=== PATIENT | female | born 1995 | race African-American/Black ===

== ENCOUNTER 2016-02-17 07:54 | Emergency (ER) | payer OTHER ==
[2016-02-17 08:13] VITALS: BP 139/88; PULSE 68; RESP 18; TEMP 98.9
--- NOTE | 2016-02-17 08:35 | ED ---
ENT HPI - General Chief complaint: ENT Stated complaint: ear pain Time Seen by Provider: 02/17/16 08:28 Source: patient, RN notes reviewed Mode of arrival: ambulatory Limitations: no limitations - History of Present Illness Initial comments: 20-year-old female presents emergency Department chief complaint of bilateral ear pain. Patient states she's been sequestered 4 days. Patient states she developed ear pain. States it is severe she's taken DayQuil NyQuil and ibuprofen. Patient states she's had minimal relief. Patient states she still feels like she has a cold. Patient has fever, chills. She states that she does get migraines from her ear pain. Patient states she has no pain behind her ear. Patient denies any sore throat or difficulty swelling. - Related Data Previous Rx's Medication Instructions Recorded Amoxicillin/Potassium Clav 1 tab PO Q12HR #20 tab 02/17/16 [Augmentin 875-125 Tablet] Allergies Allergy/AdvReac Type Severity Reaction Status Date / Time No Known Allergies Allergy Verified 02/17/16 08:39 Review of Systems ROS Statement: Those systems with pertinent positive or pertinent negative responses have been documented in the HPI. ROS Other: All systems not noted in ROS Statement are negative. Past Medical History Past Medical History: No Reported History History of Any Multi-Drug Resistant Organisms: None Reported Past Surgical History: Orthopedic Surgery, Tonsillectomy Additional Past Surgical History / Comment(s): right knee Past Psychological History: No Psychological Hx Reported Smoking Status: Never smoker Past Alcohol Use History: None Reported Past Drug Use History: None Reported General Exam Limitations: no limitations General appearance: alert, in no apparent distress Head exam: Present: atraumatic, normocephalic, normal inspection Eye exam: Present: normal appearance, PERRL, EOMI. Absent: scleral icterus, conjunctival injection, periorbital swelling ENT exam: Present: normal oropharynx, mucous membranes moist, normal external ear exam, other (No mastoid tenderness). Absent: TM's normal bilaterally (Left TM erythematous, bulging, mild fluid noted the right TM) Neck exam: Present: normal inspection, full ROM. Absent: tenderness, meningismus, lymphadenopathy Respiratory exam: Present: normal lung sounds bilaterally. Absent: respiratory distress, wheezes, rales, rhonchi, stridor Cardiovascular Exam: Present: regular rate, normal rhythm, normal heart sounds. Absent: systolic murmur, diastolic murmur, rubs, gallop, clicks Neurological exam: Present: alert, oriented X3, CN II-XII intact Course Vital Signs 02/17/16 08:11 Temperature 98.9 F Pulse Rate 68 Respiratory 18 Rate Blood Pressure 139/88 O2 Sat by Pulse 97 Oximetry Medical Decision Making - Medical Decision Making 20-year-old female presented for upper respiratory symptoms. Patient does have an otitis media. Patient we prescribed antibiotics. Discussed over-the- counter analgesics. Return parameters were discussed. Disposition Clinical Impression: Otitis media Disposition: HOME SELF-CARE Condition: Stable Instructions: Earache (ED) Additional Instructions: Please return to the Emergency Department if symptoms worsen or any other concerns. Prescriptions: Amoxicillin/Potassium Clav [Augmentin 875-125 Tablet] 1 tab PO Q12HR #20 tab Referrals: Nonstaff,Physician [Primary Care Provider] - 1-2 days Time of Disposition: 08:35
== END 2016-02-17 08:45 | disposition home or self-care (01) ==
LOC: EC 07:54
DX: H66.93 Otitis media, unspecified, bilateral (principal)
CPT/HCPCS: 99282

== ENCOUNTER 2016-02-28 13:42 | Emergency (ER) | payer OTHER ==
[2016-02-28 14:17] VITALS: RESP 16
--- NOTE | 2016-02-28 14:25 | ED ---
Female Urogenital HPI - General Chief complaint: Urogenital Stated complaint: Med Reaction Time Seen by Provider: 02/28/16 14:17 Source: patient, RN notes reviewed Mode of arrival: ambulatory Limitations: no limitations - History of Present Illness Initial comments: Patient is a 20-year-old female presents to the emergency room for evaluation of vaginal irritation. Patient states she was diagnosed with ear infection about a week and a half ago and was placed on Augmentin. Patient states she thinks she got a yeast infection from the antibiotics she was placed on. Patient states the area is really irritated and itchy. Patient states it mcclain when she urinates. Patient states she wants to get checked out to make sure she doesn't have any other type of infection going on in her vaginal area. Patient does state she is sexually active. Patient denies any history of STDs. Patient denies any flank pain. Patient denies blood in the urine. Patient denies any fevers or chills. Patient denies nausea or vomiting. Last Menstrual Period: 02/18/16 - Related Data Previous Rx's Medication Instructions Recorded Amoxicillin/Potassium Clav 1 tab PO Q12HR #20 tab 02/17/16 [Augmentin 875-125 Tablet] Acyclovir [Zovirax] 200 mg PO 5XD 10 Days 02/28/16 Fluconazole [Diflucan] 150 mg PO ONCE #1 tab 02/28/16 Allergies Allergy/AdvReac Type Severity Reaction Status Date / Time No Known Allergies Allergy Verified 02/28/16 14:23 Review of Systems ROS Statement: Those systems with pertinent positive or pertinent negative responses have been documented in the HPI. ROS Other: All systems not noted in ROS Statement are negative. Past Medical History Past Medical History: No Reported History History of Any Multi-Drug Resistant Organisms: None Reported Past Surgical History: Orthopedic Surgery, Tonsillectomy Additional Past Surgical History / Comment(s): right knee Past Psychological History: No Psychological Hx Reported Smoking Status: Never smoker Past Alcohol Use History: None Reported Past Drug Use History: None Reported General Exam - General Exam Comments Initial Comments: Sitting in exam room in no acute distress. Limitations: no limitations General appearance: alert, in no apparent distress Head exam: Present: atraumatic, normocephalic, normal inspection Eye exam: Present: normal appearance ENT exam: Present: normal exam Neck exam: Present: normal inspection Respiratory exam: Absent: respiratory distress External exam: Present: erythema, swelling, lesions (Ulcerating lesions over her labia majora and in the vaginal opening) Speculum exam: Present: vaginal discharge Extremities exam: Present: normal inspection Back exam: Present: normal inspection Neurological exam: Present: alert, oriented X3, CN II-XII intact, normal gait Psychiatric exam: Present: normal affect, normal mood Skin exam: Present: warm, dry, intact, normal color. Absent: rash Course Vital Signs 02/28/16 02/28/16 14:14 15:09 Temperature 98.4 F 98.7 F Pulse Rate 73 72 Respiratory 16 16 Rate Blood Pressure 115/77 112/7 O2 Sat by Pulse 99 Oximetry Medical Decision Making - Medical Decision Making Patient is a 20-year-old female presents emergency room for evaluation of vaginal irritation. On pelvic exam patient appears to have genital herpes along with yeast infection. Will place patient on acyclovir and Diflucan. Urine was slightly contaminated. Will culture her urine and have patient follow -up. Patient states that she will follow-up with her BLOCK CLEANER in [place] in 1-2 days. Advised patient to refrain from sexual activity until lesions clear. Patient states she understands everything that was discussed with her. Return parameters discussed. Case discussed with Dr. Carbajal. - Lab Data Lab Results 02/28/16 02/28/16 02/28/16 Range/Units 14:35 14:35 14:40 Urine Color Yellow Urine Appearance Clear (Clear) Urine pH 6.0 (5.0-8.0) Ur Specific [place] 1.017 (1.001-1.035) Urine Protein Trace H (Negative) Urine Glucose (UA) Negative (Negative) Urine Ketones Negative (Negative) Urine Blood Negative (Negative) Urine Nitrate Negative (Negative) Urine Bilirubin Negative (Negative) Urine Urobilinogen 4.0 (<2.0) mg/dL Ur Leukocyte Esterase Moderate H (Negative) Urine RBC 5 (0-5) /hpf Urine WBC 12 H (0-5) /hpf Ur Squamous Epith Cells 6 H (0-4) /hpf Urine Mucus Rare H (None) /hpf Urine HCG, Qual Not Detected (Not Detectd) Trichomonas Ag (Rapid) Negative (Negative) Disposition Clinical Impression: Genital herpes, Yeast infection Disposition: HOME SELF-CARE Condition: Good Instructions: Genital Herpes Simplex (ED), Vulvovaginal Candidiasis (ED) Additional Instructions: Take medications as directed. Please follow-up with [facility] CLE[facility]ER in 24-48 hours for reevaluation. Refrain from sexual activity until lesions disappear. If any new symptom arises, symptoms worsen or fever develops, return to ER as soon as possible. Prescriptions: Acyclovir [Zovirax] 200 mg PO 5XD 10 Days Fluconazole [Diflucan] 150 mg PO ONCE #1 tab Referrals: Nonstaff,Physician [REFERRING] - 1-2 days Time of Disposition: 15:11
[2016-02-28 14:55] LABS: Appearance,Urine Clear (Clear); Bilirubin,Urine Negative (Negative); Glucose,Urine (UA) Negative (Negative); Ketones,Urine Negative (Negative); Leukocyte Esterase,Urine Moderate (Negative); Mucus,Urine Rare /hpf; Nitrite,Urine Negative (Negative); Particle Count 4460; Protein,Urine Trace (Negative); RBC,Urine 5 /hpf (0-5); Specific Gravity,Urine 1.017 (1.001-1.035); Squamous Epithelial Cell,Urine 6 /hpf (0-4); UA Billing (MACRO vs. MICRO) MICRO; WBC,Urine 12 /hpf (0-5)
[2016-02-28 15:11] VITALS: BP 112/7; PULSE 72; TEMP 98.7
== END 2016-02-28 15:15 | disposition home or self-care (01) ==
LOC: EC 13:42
DX: B37.3 Candidiasis of vulva and vagina (principal); B00.9 Herpesviral infection, unspecified; Z79.899 Other long term (current) drug therapy
CPT/HCPCS: 81001; 81025; 87070; 87205; 87491; 87591; 87808; 99283

== ENCOUNTER 2016-03-19 17:45 | Emergency (ER) | payer OTHER ==
[2016-03-19 18:34] VITALS: BP 123/76; PULSE 74; RESP 18; TEMP 98.7
--- NOTE | 2016-03-19 19:17 | ED ---
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 Patient states she was diagnosed with genital herpes about a month ago. Patient states that a few days after she was here she was called and told she had bacterial vaginosis. Patient states that she took all her medications prescribed to her. Patient states that she wants her vaginal area reassessed to make sure the herpes has subsided. Patient denies any pain or irritation at the area. Patient denies any abdominal vaginal discharge or discomfort. Patient denies any pain or burning during urination, trouble urinating or blood in urine. Patient states she has not been able to see her OB /ANODIZER yet so she came here. Patient denies any other symptoms or complaints at this time. Last Menstrual Period: 03/17/16 - Related Data Home Medications Medication Instructions Recorded Confirmed No Known Home Medications [No 03/19/16 03/19/16 Known Home Medications] Allergies Allergy/AdvReac Type Severity Reaction Status Date / Time No Known Allergies Allergy Verified 02/28/16 14:23 Review of Systems ROS Statement: Those systems with pertinent positive or pertinent negative responses have been documented in the HPI. ROS Other: All systems not noted in ROS Statement are negative. Past Medical History Past Medical History: No Reported History History of Any Multi-Drug Resistant Organisms: None Reported Past Surgical History: Orthopedic Surgery, Tonsillectomy Additional Past Surgical History / Comment(s): right knee Past Psychological History: No Psychological Hx Reported Smoking Status: Never smoker Past Alcohol Use History: None Reported Past Drug Use History: None Reported General Exam - General Exam Comments Initial Comments: Sitting in exam room in no acute distress. Limitations: no limitations General appearance: alert, in no apparent distress Head exam: Present: atraumatic, normocephalic, normal inspection Eye exam: Present: normal appearance ENT exam: Present: normal exam Neck exam: Present: normal inspection Respiratory exam: Absent: respiratory distress External exam: Present: normal external exam Speculum exam: Present: normal speculum exam By manual exam: Present: normal by manual exam Back exam: Present: normal inspection Neurological exam: Present: alert, oriented X3, CN II-XII intact, normal gait Psychiatric exam: Present: normal affect, normal mood Skin exam: Present: warm, dry, intact, normal color. Absent: rash Course Vital Signs 03/19/16 18:32 Temperature 98.7 F Pulse Rate 74 Respiratory 18 Rate Blood Pressure 123/76 O2 Sat by Pulse 100 Oximetry Medical Decision Making - Medical Decision Making Patient is a 20-year-old female presents to the emergency room for evaluation of genital herpes. No herpes lesions noted at this time. Trich negative. Other vaginal cultures pending. Advised patient to follow-up with [facility]NAGER. Patient states she understands everything that was discussed with her. Return parameters discussed. Case discussed with Dr. Solano. - Lab Data Lab Results 03/19/16 Range/Units 19:10 Trichomonas Ag (Rapid) Negative (Negative) Disposition Clinical Impression: Genital herpes Disposition: HOME SELF-CARE Condition: Good Instructions: Sexually Transmitted Diseases (ED) Additional Instructions: Please follow-up with FIELD SERVICE MANAGER.If any new symptom arises, symptoms worsen or fever develops, return to ER as soon as possible. Referrals: Alexander Iqbal MD [STAFF PHYSICIAN] - 1-2 days Time of Disposition: 19:40
== END 2016-03-19 19:56 | disposition home or self-care (01) ==
LOC: EC 17:45
DX: A60.00 Herpesviral infection of urogenital system, unspecified (principal); A64 Unspecified sexually transmitted disease
CPT/HCPCS: 87070; 87205; 87491; 87591; 87808; 99283

== ENCOUNTER → 2016-03-31 | Outpatient (CLI) | payer OTHER ==
[2016-04-01 01:38] LABS: HSV I IgG Interp NEGATIVE (NEGATIVE); HSV II IgG Interp POSITIVE (NEGATIVE)
== END | disposition home or self-care (01) ==
LOC: LABWHC1 15:10
PROVIDERS: ATTEND Obstetrics & Gynecology
DX: N76.2 Acute vulvitis (principal)
CPT/HCPCS: 36415; 86694; 86695; 86696